=== PATIENT | male | born 1995 | race Caucasian/White ===

== ENCOUNTER 2017-11-14 11:00 | Emergency (ER) | payer BC, MEDICAID, OTHER, SELFPAY ==
[~2017-11-14] VITALS: Ht 167.6 cm; Wt 80.2 kg
[2017-11-14 11:03] VITALS: BP 125/77
[2017-11-14] MEDS ORDERED: PROMETHAZINE 25 MG/ML, 1ML IM ONE (12:00)
[2017-11-14] MEDS ORDERED: PROMETHAZINE 25 MG/ML, 1ML ONE (12:18)
[2017-11-14 12:36] LABS: ALBUMIN 3.6 g/dL (3.4-5.0); ANION GAP 7 mmol/L (5-15); CALCIUM 8.7 mg/dL (8.5-10.1); CHLORIDE 105 mmol/L (98-107); CREATININE 0.92 mg/dL (0.7-1.3)
== END 2017-11-14 13:36 | disposition home or self-care (01) ==
LOC: ED 13:08
DX: G43.009 Migraine without aura, not intractable, without status migrainosus (principal); R11.2 Nausea with vomiting, unspecified
CPT/HCPCS: 36415; 80048; 82040; 96372; 99284; J2550; 99283

== ENCOUNTER 2019-07-22 15:45 | Emergency (ER) | payer OTHER ==
[~2019-07-22] VITALS: Ht 167.6 cm; Wt 65.6 kg
--- NOTE | 2019-07-22 16:36 | NUR ---
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
--- NOTE | 2019-07-22 16:54 | NUR ---
PT C/O SUBJECTIVE FEVER/CHILLS, N/V SINCE THIS AM AND "COLD SYMPTOMS" FOR THE LAST FEW DAYS. mild fever, hr 90 upon rooming Provider to bedside reports throat reddned/swollen-test strep/influenza/cxr
[2019-07-22] MEDS ORDERED: ACETAMINOPHEN 325 MG TABLET PO ONE (17:00)
--- NOTE | 2019-07-22 17:02 | NUR ---
xray at bedside
[2019-07-22 17:35] LABS: RAPID INFLUENZA A Negative (Negative); RAPID INFLUENZA B POSITIVE (Negative)
[2019-07-22] MEDS ORDERED: ACETAMINOPHEN 325 MG TABLET ONE (17:48)
[2019-07-22 18:00] VITALS: BP 133/50
== END 2019-07-22 18:22 | disposition home or self-care (01) ==
LOC: ED 17:50
DX: J10.1 Influenza due to other identified influenza virus with other respiratory manifestations (principal); F17.200 Nicotine dependence, unspecified, uncomplicated; F12.10 Cannabis abuse, uncomplicated
CPT/HCPCS: 71045; 87081; 87400; 87880; 99284